=== PATIENT | male | born 1980 | race Caucasian/White ===

== ENCOUNTER 2017-08-25 14:38 | Emergency (ER) | payer SELFPAY ==
[2017-08-25 14:57] VITALS: BP 152/90
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
== END 2017-08-25 19:20 | disposition home or self-care (01) ==
LOC: JP.ED 14:38
DX: R45.851 Suicidal ideations (principal); F17.210 Nicotine dependence, cigarettes, uncomplicated
CPT/HCPCS: 99285

== ENCOUNTER 2017-12-05 14:16 | Emergency (ER) | payer BC ==
[2017-12-05 14:33] VITALS: BP 158/88
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
== END 2017-12-05 15:29 | disposition home or self-care (01) ==
LOC: JP.ED 14:16
DX: S06.0X0A Concussion without loss of consciousness, initial encounter (principal); F17.210 Nicotine dependence, cigarettes, uncomplicated; W50.0XXA Accidental hit or strike by another person, initial encounter
CPT/HCPCS: 99283